=== PATIENT | male | born 1980 | race Caucasian/White ===

== ENCOUNTER 2017-02-13 09:30 | Emergency (ER) | payer BC ==
--- NOTE | 2017-02-13 09:50 | ERPHSYRPT ---
- History of Present Illness Time Seen by Provider: 02/13/17 09:47 Source: patient Exam Limitations: no limitations Patient Subjective Stated Complaint: pt had surgery on satiday on lt heel. pt states increased sob since this morning. states sob with movement or still. denies upper resp s/s or cough or fever. good sensation to lt lower leg--cast noted. states no bm since surgery--stool softener x3 this morning. denies cp. Triage Nursing Assessment: sob since this morning with waking. denies cough. Physician History: The patient is a 36-year-old male complaining of a sudden onset of shortness of breath when he got up this morning. He denies cough or chest pain. 5 days ago he had surgery on his left calf to repair a ruptured Achilles tendon. He has been bedridden for those 5 days. He has been taking [place] and Flexeril as well as a stool softener. He has not had a BM since his surgery. He is not on any anticoagulants. Timing/Duration: today, sudden Activities at Onset: activity Severity of Dyspnea-Max: mild Severity of Dyspnea-Current: mild Possible Cause: no prior episodes Associated Symptoms: denies symptoms Allergies/Adverse Reactions: No Known Drug Allergies Allergy (Unverified 02/13/17 09:46) Home Medications: Cyclobenzaprine HCl 10 mg [Flexeril 10 MG] 10 mg PO Q4H PRN PRN 02/13/17 [ History] Docusate Sodium 100 mg [Colace 100 MG] 300 mg PO UD 02/13/17 [History] Hydrocodone/Acetaminophen [Vicodin Hp 10-300 mg Tablet] 1 each PO Q4HPRN PRN [History] Hx Tetanus, Diphtheria Vaccination/Date Given: Yes Hx Influenza Vaccination/Date Given: No Hx Pneumococcal Vaccination/Date Given: No Immunizations Up to Date: Yes - Review of Systems Constitutional: No Fever, No Chills Eyes: No Symptoms Ears, Nose, & Throat: No Symptoms Respiratory: Dyspnea, Dyspnea on Exertion (BAUMANN) Cardiac: No Chest Pain, No Edema, No Syncope Abdominal/Gastrointestinal: No Abdominal Pain, No Nausea, No Vomiting, No Diarrhea Genitourinary Symptoms: No Dysuria Musculoskeletal: Other (surgery on left Achilles 5 days ago, left lowere leg in cast.) Skin: No Rash Neurological: No Dizziness, No Focal Weakness, No Sensory Changes Psychological: No Symptoms Endocrine: No Symptoms Hematologic/Lymphatic: No Symptoms Immunological/Allergic: No Symptoms All Other Systems: Reviewed and Negative - Past Medical History Pertinent Past Medical History: No Neurological History: Migraines Musculoskeletal History: Other (sacral ileal muscle tightness) GI Medical History: No Pertinent History Other Medical History: SI--muscle tightness - Past Surgical History Past Surgical History: Yes Other Surgical History: achilles tendon repair--lt - Social History Smoking Status: Never smoker Exposure to second hand smoke: No Drug Use: none Patient Lives Alone: No - Nursing Vital Signs Nursing Vital Signs: Initial Vital Signs Temperature 97.2 F Temperature Source Oral Pulse Rate 67 Respiratory Rate 18 Blood Pressure [Right Arm] 129/73 Pain Intensity 5 - Physical Exam General Appearance: no apparent distress, alert Eye Exam: PERRL/EOMI Neck Exam: normal inspection, supple Respiratory Exam: normal breath sounds Cardiovascular/Chest Exam: normal heart sounds, regular rate/rhythm Abdominal/Gastrointestinal Exam: soft, No tenderness, No distention, No mass Rectal Exam: not done Extremity Exam: normal inspection (left lower leg in cast s/p achilles tendon surgery 5 days ago.), no calf tenderness, no pedal edema Neurologic Exam: alert, oriented x 3, cooperative, clinical provider trainer II-XII nml as tested, sensation nml, No motor deficits Skin Exam: normal color, warm, No dry SpO2 Interpretation: normal SpO2: 98 Oxygen Delivery: Room Air - CT Exams Chest CT Interpretation: Tele-radiologist Report, Other (No PE seen, bilateral dependent atelecstasis, incidental fatty liver per Dr. Still.) Ordered Tests: Active Orders 24 hr Category Date Time Status IV Insertion STAT Care 02/13/17 09:50 Active Pulse Oximetry (ED) STAT Care 02/13/17 09:50 Active CHEST WITH CONTRAST [CT] Stat Exams 02/13/17 10:06 Completed CBC W DIFF Stat Lab 02/13/17 10:07 Completed CMP Stat Lab 02/13/17 10:07 Completed D-DIMER QUANTITATION Stat Lab 02/13/17 10:07 Completed PROTIME WITH INR Stat Lab 02/13/17 10:07 Completed PTT Stat Lab 02/13/17 10:07 Completed TROPONIN Stat Lab 02/13/17 10:07 Completed Lab/Rad Data: Laboratory Result Diagrams 02/13/17 10:07 02/13/17 10:07 Laboratory Results 02/13/17 02/13/17 02/13/17 Range/Units 10:07 10:07 10:07 WBC 8.0 (4.0-10.5) K/mm3 RBC 5.59 (4.1-5.6) M/mm3 Hgb 17.2 (12.5-18.0) gm/dl Hct 49.5 (42-50) % MCV 88.6 (78-100) fl MCH 30.8 (26-32) pg MCHC 34.7 (32-36) g/dl RDW 12.5 (11.5-14.0) % Plt Count 239 (150-450) K/mm3 MPV 9.8 H (6-9.5) fl Gran % 63.9 (36.0-66.0) % Lymphocytes % 20.2 L (24.0-44.0) % Monocytes % 13.6 H (0.0-12.0) % Eosinophils % 1.9 (0.00-5.0) % Basophils % 0.4 (0.0-0.4) % Basophils # 0.03 (0-0.4) INR 1.08 (0.8-3.0) PTT 36.8 H (24.1-36.1) SECONDS D-Dimer 0.518 H* (0.00-0.49) mg/L Sodium 138 (136-145) mEq/L Potassium 4.4 (3.5-5.1) mEq/L Chloride 102 (98-107) mEq/L Carbon Dioxide 26.3 (21-32) mEq/L Anion Gap 14.4 (5-15) MEQ/L BUN 25 H (9-20) mg/dL Creatinine 1.16 (0.55-1.30) mg/dl Estimated GFR > 60 ML/MIN Glucose 100 (70-110) MG/DL Calcium 9.4 (8.5-10.1) mg/dL Total Bilirubin 1.0 (0.2-1.0) mg/dL AST 24 (15-37) U/L ALT 50 (12-78) U/L Alkaline Phosphatase 73 (46-116) U/L Troponin I < 0.017 (0.000-0.056) ng/ml Serum Total Protein 8.5 H (6.4-8.2) gm/dL Albumin 4.1 (3.4-5.0) g/dL - Progress Air Movement: good Progress Note: 02/13/17 10:45 Pt reports that when he gets an IV, he might go vaso vagel, pass out, and go into convulsions. I explained the reason for needing to do a Chest CT for PE. Pt agrees for CT imaging study. Blood Culture(s) Obtained: No Antibiotics given: No Counseled pt/family regarding: lab results, diagnosis, need for follow-up, rad results - Departure Time of Disposition: 11:49 Departure Disposition: Home Clinical Impression: Dyspnea, unspecified, Constipation Condition: Stable Critical Care Time: No Additional Instructions: You do not have a pulmonary embolus. Your shortness of breath is likely due to inactivity for several days after your surgery. You also have constipation as a result of taking narcotics. Begin to ambulate with crutches. Take Milk of Magnesia 2 Tbs at night as needed for constipation. Follow up as scheduled.
[2017-02-13 10:15] LABS: BASOPHIL % 0.4 % (0.0-0.4); Eosinophil % 1.9 % (0.00-5.0); Granulocytes % 63.9 % (36.0-66.0); Lymphocytes % 20.2 % (24.0-44.0); Mean Cell Volume 88.6 fl (78-100); Mean Corpuscular Hemoglobin 30.8 pg (26-32); Mean Platelet Volume 9.8 fl (6-9.5); Monocytes % 13.6 % (0.0-12.0); Platelet Count 239 K/mm3 (150-450); Red Blood Count 5.59 M/mm3 (4.1-5.6); Red Cell Distribution Width 12.5 % (11.5-14.0)
[2017-02-13 10:25] LABS: INR 1.08 (0.8-3.0); PROTIME 12.1 SECONDS (8.83-12.87)
[2017-02-13 10:27] LABS: PTT 36.8 SECONDS (24.1-36.1)
[2017-02-13 10:34] LABS: ALBUMIN 4.1 g/dL (3.4-5.0); ALKALINE PHOSPHATASE 73 U/L (46-116); ANION GAP 14.4 MEQ/L (5-15); BLOOD UREA NITROGEN 25 mg/dL (9-20); CHLORIDE 102 mEq/L (98-107); Carbon Dioxide 26.3 mEq/L (21-32); Glucose 100 MG/DL (70-110); Potassium 4.4 mEq/L (3.5-5.1); SGOT/AST 24 U/L (15-37); SGPT/ALT 50 U/L (12-78); SODIUM 138 mEq/L (136-145); Total Protein 8.5 gm/dL (6.4-8.2)
[2017-02-13 10:38] LABS: TROPONIN < 0.017 ng/ml (0.000-0.056)
--- NOTE | 2017-02-13 11:36 | XRAY ---
Indication: Short of breath. Multiple contiguous axial images obtained through the chest using 80 cc Isovue 370 contrast and PE protocol. Comparison: None There is poor opacification of the pulmonary arteries for unknown reason. No large central pulmonary embolus. Heart is not enlarged. Aorta is normal in course and caliber. No pathologic mediastinal/hilar lymphadenopathy. Lungs demonstrates minimal bilateral dependent atelectasis and calcified granuloma in the left lower lobe and right posterior gutter. No suspicious pulmonary mass, infiltrate, consolidation, or effusion. Bony thorax intact. Limited upper abdomen demonstrates fatty liver and 15.7 cm splenomegaly. Impression: 1. Limited CT PE exam. No large central pulmonary embolus. 2. No acute cardiopulmonary abnormalities. 3. Incidental fatty liver and splenomegaly. CT DI 23.68
[2017-02-13 12:22] VITALS: BP 135/70; PULSE 78; O2SAT 100
== END 2017-02-13 12:22 | disposition home or self-care (01) ==
LOC: ED 09:30
DX: R06.00 Dyspnea, unspecified (principal); K59.00 Constipation, unspecified; R06.02 Shortness of breath; Z79.899 Other long term (current) drug therapy
CPT/HCPCS: 36000; 36415; 71260; 80053; 84484; 85025; 85379; 85610; 85730; 99284